=== PATIENT | female | born 1955 | race Hispanic/Latino ===

== ENCOUNTER 2017-10-04 18:58 | Emergency (ER) | payer MEDICARE ==
[2017-10-04 20:10] VITALS: BP 121/70
[2017-10-04] MEDS ORDERED: THERAGRAN Tab PO ONE (20:20)
[2017-10-04] MEDS ORDERED: VITAMIN B-1 PO ONE (20:20)
--- NOTE | 2017-10-04 20:23 | Emergency Department Report ---
ED General Adult HPI - General Chief complaint: Alcohol Stated complaint: ETOH Time Seen by Provider: 10/04/17 19:53 Source: EMS Mode of arrival: Stretcher Limitations: No Limitations - History of Present Illness Initial comments: Patient presents to the emergency department for evaluation. Patient states that she has been drinking and comes to the ED for further evaluation. Patient has no other complaints. Patient denies chest pain, shortness of breath, abdominal pain, headache Radiation: non-radiation Severity scale (0 -10): 0 Improves with: none Worsens with: none Associated Symptoms: denies other symptoms Treatments Prior to Arrival: none ED Review of Systems ROS: Stated complaint: ETOH Other details as noted in HPI Comment: All other systems reviewed and negative Constitutional: denies: chills, fever Eyes: denies: eye pain, eye discharge, vision change ENT: denies: ear pain, throat pain Respiratory: denies: cough, shortness of breath, wheezing Cardiovascular: denies: chest pain, palpitations Endocrine: no symptoms reported Gastrointestinal: denies: abdominal pain, nausea, diarrhea Genitourinary: denies: urgency, dysuria, discharge Musculoskeletal: denies: back pain, joint swelling, arthralgia Skin: denies: rash, lesions Neurological: denies: headache, weakness, paresthesias Psychiatric: denies: anxiety, depression Hematological/Lymphatic: denies: easy bleeding, easy bruising ED Past Medical Hx - Social History Smoking Status: Current Every Day Smoker Substance Use Type: Alcohol ED Physical Exam - General Limitations: No Limitations, Other (patient appears inebriated with an odor of EtOH) General appearance: alert, in no apparent distress - Head Head exam: Present: atraumatic, normocephalic - Eye Eye exam: Present: normal appearance - ENT ENT exam: Present: mucous membranes moist - Neck Neck exam: Present: normal inspection - Respiratory Respiratory exam: Present: normal lung sounds bilaterally. Absent: respiratory distress - Cardiovascular Cardiovascular Exam: Present: regular rate, normal rhythm. Absent: systolic murmur, diastolic murmur, rubs, gallop - GI/Abdominal GI/Abdominal exam: Present: soft, normal bowel sounds. Absent: distended, tenderness - Extremities Exam Extremities exam: Present: normal inspection - Back Exam Back exam: Present: normal inspection - Neurological Exam Neurological exam: Present: alert, oriented X3, CN II-XII intact. Absent: motor sensory deficit - Psychiatric Psychiatric exam: Present: normal affect, normal mood - Skin Skin exam: Present: warm, dry, intact, normal color. Absent: rash ED Course Vital Signs 10/04/17 10/04/17 19:50 20:00 Pulse Rate 79 Respiratory 19 20 Rate Blood Pressure 121/70 O2 Sat by Pulse 88 92 Oximetry ED Medical Decision Making - Lab Data Result diagrams: 10/04/17 20:23 10/04/17 20:23 - Medical Decision Making Discussed results with the patient Critical care attestation.: If time is entered above; I have spent that time in minutes in the direct care of this critically ill patient, excluding procedure time. ED Disposition Clinical Impression: Alcohol abuse Disposition: DC-01 TO HOME OR SELFCARE Is pt being admited?: No Does the pt Need Aspirin: No Condition: Stable Instructions: Alcohol Intoxication (ED), Abuse of Alcohol (ED) Additional Instructions: Return if worse Time of Disposition: 02:15
[2017-10-04 20:51] LABS: Basophils # (Auto) 0.1 K/mm3 (0.0-0.1); Basophils % (Auto) 1.8 % (0.0-1.8); Eosinophils # (Auto) 0.5 K/mm3 (0.0-0.4); Eosinophils % (Auto) 7.2 % (0.0-4.3); Hematocrit 28.4 % (30.3-42.9); Hemoglobin 9.3 gm/dl (10.1-14.3); Lymphocytes # (Auto) 2.8 K/mm3 (1.2-5.4); Lymphocytes % (Auto) 41.8 % (13.4-35.0); Mean Corpuscular HGB Conc 33 % (30-34); Mean Corpuscular Hemoglobin 33 pg (28-32); Mean Corpuscular Volume 101 fl (79-97); Monocytes # (Auto) 0.8 K/mm3 (0.0-0.8); Monocytes % (Auto) 11.6 % (0.0-7.3); Platelet Count 239 K/mm3 (140-440); Red Cell Distribution Width 18.4 % (13.2-15.2)
[2017-10-04 21:19] LABS: Alanine Aminotransferase 65 units/L (7-56); Albumin 3.5 g/dL (3.9-5); BUN/Creatinine Ratio 17; Blood Urea Nitrogen 10 mg/dL (7-17); Calcium 8.2 mg/dL (8.4-10.2); Hemolysis Index 4
[2017-10-05] MEDS ORDERED: FOLVITE PO SCH (10:00)
== END 2017-10-05 04:15 | disposition home or self-care (01) ==
LOC: ED 18:58
DX: F10.129 Alcohol abuse with intoxication, unspecified (principal)
CPT/HCPCS: 36415; 80053; 82693; 85025; 99283; G0480; 80320

== ENCOUNTER 2017-10-09 17:00 | Inpatient (IN) | payer MEDICARE ==
--- NOTE | 2017-10-09 17:31 | Emergency Department Report ---
ED Shortness of Breath HPI - General Chief Complaint: Dyspnea/Respdistress Stated Complaint: DIFFICULTY BREATHING Time Seen by Provider: 10/09/17 17:30 Source: EMS Mode of arrival: Stretcher Limitations: No Limitations - History of Present Illness Initial Comments: Patient states she is homeless and she's been smoking and drinking alcohol all day. She came to the emergency room complaining of shortness of breath after drinking alcohol and smoking cigarettes today. Patient looks unkempt. MD Complaint: shortness of breath -: Gradual Severity: mild Pain Scale: 3 Improves With: nothing Worsens With: nothing Treatments Prior to Arrival: none - Related Data Home Medications Medication Instructions Recorded Confirmed Last Taken Unobtainable 10/09/17 10/09/17 Unknown Allergies Allergy/AdvReac Type Severity Reaction Status Date / Time Penicillins Allergy Unknown Unknown Verified 10/09/17 17:21 ED Review of Systems ROS: Stated complaint: DIFFICULTY BREATHING Other details as noted in HPI Comment: All other systems reviewed and negative Constitutional: denies: chills, fever Eyes: denies: eye pain ENT: denies: ear pain Respiratory: shortness of breath Cardiovascular: denies: chest pain, palpitations, dyspnea on exertion Endocrine: no symptoms reported Gastrointestinal: denies: abdominal pain, nausea, vomiting, diarrhea Genitourinary: denies: urgency, dysuria, frequency Musculoskeletal: denies: back pain, joint swelling Skin: denies: rash, change in color Neurological: denies: headache, weakness Psychiatric: denies: anxiety, depression Hematological/Lymphatic: denies: easy bleeding, easy bruising ED Past Medical Hx - Past Medical History Previous Medical History?: Yes Hx Hypertension: Yes Hx Seizures: Yes Hx COPD: Yes - Surgical History Past Surgical History?: Yes Additional Surgical History: Partial Hysterectomy - Social History Smoking Status: Current Every Day Smoker Substance Use Type: Alcohol - Medications Home Medications: Home Medications Medication Instructions Recorded Confirmed Last Taken Type Unobtainable 10/09/17 10/09/17 Unknown History ED Physical Exam - General Limitations: No Limitations General appearance: alert, in no apparent distress, other (Unkempt) - Head Head exam: Present: atraumatic, normocephalic, normal inspection - Eye Eye exam: Present: normal appearance, PERRL, EOMI Pupils: Present: normal accommodation - ENT ENT exam: Present: normal exam, normal orophraynx, mucous membranes moist - Neck Neck exam: Present: normal inspection, full ROM. Absent: tenderness - Respiratory Respiratory exam: Present: normal lung sounds bilaterally. Absent: respiratory distress, wheezes, rales, rhonchi - Cardiovascular Cardiovascular Exam: Present: regular rate, normal rhythm, normal heart sounds - GI/Abdominal GI/Abdominal exam: Present: soft, normal bowel sounds. Absent: distended, tenderness, guarding, rebound - Extremities Exam Extremities exam: Present: normal inspection, full ROM, normal capillary refill - Back Exam Back exam: Present: normal inspection, full ROM - Neurological Exam Neurological exam: Present: alert, oriented X3, CN II-XII intact - Psychiatric Psychiatric exam: Present: normal affect, normal mood - Skin Skin exam: Present: warm, dry, intact, normal color ED Course Vital Signs 10/09/17 10/09/17 10/10/17 17:13 19:28 10:41 Temperature 97.5 F L 97.8 F Pulse Rate 112 H 92 H Pulse Rate [ 92 H Anterior Bilateral Throughout] Respiratory 18 18 Rate Respiratory 18 Rate [Anterior Bilateral Throughout] Blood Pressure 140/80 178/90 [Left] O2 Sat by Pulse 100 95 Oximetry - Reevaluation(s) Reevaluation #1: 10/09/17 20:02 Patient care was transferred to Dr Christine at shift change pending alcohol level, CTA of the chest with IV contrast to evaluate for pulmonary embolism. Dr. Christine to re-evaluate and disposition patient after her Lab and CT scan has resulted. ED Medical Decision Making - Lab Data Result diagrams: 10/09/17 18:54 10/09/17 18:54 - EKG Data -: EKG Interpreted by Me EKG shows normal: sinus rhythm Rate: normal (99) - EKG Data When compared to previous EKG there are: previous EKG unavailable Interpretation: no acute changes - Radiology Data Radiology results: report reviewed, image reviewed - Medical Decision Making Shortness of breath. COPD. Critical care attestation.: If time is entered above; I have spent that time in minutes in the direct care of this critically ill patient, excluding procedure time. ED Disposition Clinical Impression: Alcohol abuse, Elevated d-dimer Dyspnea Qualifiers: Dyspnea type: unspecified Qualified Code(s): R06.00 - Dyspnea, unspecified Disposition: OP ADMIT IP TO THIS HOSP Is pt being admited?: Yes Does the pt Need Aspirin: No Condition: Stable Referrals: PRIMARY CARE,MD [Primary Care Provider] - 3-5 Days
[2017-10-09] MEDS ORDERED: PROVENTIL IH ONE (17:40)
[2017-10-09] MEDS ORDERED: NACL 0.9% 1000 ML 1,000 ML IV ONE (17:42)
[2017-10-09 18:57] LABS: Bacteria,Urine 1+ /HPF (Negative); Bilirubin,Urine NEG (Negative); Blood,Urine NEG (Negative); Color,Urine Yellow (Yellow); Hyaline Casts,Urine 1 /LPF; Mucus,Urine FEW /HPF; Protein,Urine <15 mg/dL mg/dL (Negative)
[2017-10-09 19:04] LABS: Basophils # (Auto) 0.1 K/mm3 (0.0-0.1); Basophils % (Auto) 1.3 % (0.0-1.8); Eosinophils # (Auto) 0.5 K/mm3 (0.0-0.4); Eosinophils % (Auto) 7.6 % (0.0-4.3); Hematocrit 31.3 % (30.3-42.9); Hemoglobin 10.4 gm/dl (10.1-14.3); Lymphocytes # (Auto) 2.3 K/mm3 (1.2-5.4); Lymphocytes % (Auto) 33.4 % (13.4-35.0); Mean Corpuscular HGB Conc 33 % (30-34); Mean Corpuscular Hemoglobin 33 pg (28-32); Mean Corpuscular Volume 99 fl (79-97); Monocytes # (Auto) 0.6 K/mm3 (0.0-0.8); Monocytes % (Auto) 8.3 % (0.0-7.3); Platelet Count 256 K/mm3 (140-440); Red Blood Count 3.16 M/mm3 (3.65-5.03); Red Cell Distribution Width 18.4 % (13.2-15.2)
[2017-10-09 19:06] LABS: Amphetamine Screen,Urine PRESUMPTIVE NEGATIVE; Cannabinoid Screen,Urine PRESUMPTIVE NEGATIVE; Cocaine Screen,Urine PRESUMPTIVE NEGATIVE; Methadone Screen,Urine PRESUMPTIVE NEGATIVE; Opiate Screen,Urine PRESUMPTIVE NEGATIVE
[2017-10-09 19:31] LABS: Benzodiazepines Screen,Urine PRESUMPTIVE POSITIVE
[2017-10-09 19:48] LABS: Alanine Aminotransferase 70 units/L (7-56)
[2017-10-09 19:55] LABS: Bilirubin,Direct < 0.2 mg/dL (0-0.2)
[2017-10-09 20:10] LABS: BUN/Creatinine Ratio 10; Blood Urea Nitrogen 6 mg/dL (7-17); Calcium 8.9 mg/dL (8.4-10.2); Hemolysis Index 13
--- NOTE | 2017-10-09 20:43 | XRay Report ---
FINAL REPORT EXAM: XR CHEST 1V AP HISTORY: Shortness of breath TECHNIQUE: AP portable view of the chest PRIORS: None. FINDINGS: Lines, tubes, and devices: N/A Lungs and pleura: Trachea is normal in position. Lungs are clear of infiltrate, pleural effusion, vascular congestion, or pneumothorax. Cardiomediastinal silhouette: Cardiac and mediastinal silhouettes are unremarkable. Calcification of the aortic arch is noted. Other: Bony structures are intact. IMPRESSION: No acute cardiopulmonary process seen.
--- NOTE | 2017-10-09 23:00 | Cat Scan Report ---
FINAL REPORT PROCEDURE: CT ANGIO CHEST TECHNIQUE: Computerized tomographic angiography of the chest was performed after the IV injection of iodinated nonionic contrast including image processing. The image data was postprocessed using 2-dimensional multiplanar reformatted (MPR) and 3-dimensional (MIP and/or volume rendered) techniques. HISTORY: Elevated D-Dimer COMPARISON: No prior studies are available for comparison. FINDINGS: Bilateral pulmonary arteries and their branches demonstrate normal opacification without filling defects. Aorta is of normal caliber without evidence of dissection or aneurysm formation. Cardiac size is within normal limits. There is mild degree sub-carinal lymphadenopathy. Nonenlarged right hilar lymph nodes are identified. Thyroid demonstrates normal size and density. Visualized upper abdominal structures are within normal limits. There is diffuse thickening of interstitial septa. There are no confluent infiltrates or mass lesions. IMPRESSION: No evidence of pulmonary embolism No acute pulmonary process Diffuse interstitial septal thickening most likely represents interstitial fibrosis. Mild degree sub-carinal lymphadenopathy.
[2017-10-10] MEDS ORDERED: ATIVAN IV PRN ×2 (02:16)
--- NOTE | 2017-10-10 02:19 | Emergency Department Report ---
Blank Doc - Documentation Documentation: I was asked by Dr Zayas to follow the CT angiography results for this patient and assist with disposition. CT angiography does not show any signs of any pulmonary embolism or any other acute process. The patient's blood alcohol level was 0.22 but upon recheck it is now down to 0.03. The patient is awake and alert but does appear tremulous and is starting to have some withdrawal signs. She has been placed on the CIWA protocol. The patient will remain down here in the emergency department and will be seen by the [facility] spa therapist for possible detox referral.
[2017-10-10] MEDS: ATIVAN IV PRN ×3 (07:55→18:43)
--- NOTE | 2017-10-10 10:01 | History and Physical Report ---
History of Present Illness Date of examination: 10/10/17 Date of admission: 10/10/17 Chief complaint: Worsening shortness of breath/for alcohol detox History of present illness: 61-year-old female patient with significant past medical history of COPD and chronic alcohol use presented to the emergency room with worsening shortness of breath and patient also requests to be admitted for detox program for alcohol. Patient reports that she is homeless, and depressed and has been drinking excessively. The [facility] team has evaluated the patient, and patient agreed to undergo treatment. Patient denies chest pain or palpitations Complains of mild shortness of breath Past History Past Medical History: other (depression) Past Surgical History: No surgical history Social history: smoking, alcohol abuse (on his alcohol use) Family history: hypertension Medications and Allergies Allergies Allergy/AdvReac Type Severity Reaction Status Date / Time Penicillins Allergy Unknown Unknown Verified 10/09/17 17:21 Home Medications Medication Instructions Recorded Confirmed Last Taken Type Unobtainable 10/09/17 10/09/17 Unknown History Active Meds: Active Medications Lorazepam (Ativan) 2 mg IV Q1HR PRN PRN Reason: CIWA-Ar 8-15 Last Admin: 10/10/17 07:55 Dose: 2 mg Lorazepam (Ativan) 4 mg IV Q1HR PRN PRN Reason: CIWA-Ar 16-25 Lorazepam (Ativan) 4 mg IV Q15MIN PRN PRN Reason: CIWA-Ar >25 Review of Systems Constitutional: no weight loss, no weight gain, no fever, no chills Ears, nose, mouth and throat: no nasal congestion, no nasal discharge Cardiovascular: shortness of breath, no chest pain, no orthopnea, no palpitations Respiratory: no cough with sputum, no hemoptysis Gastrointestinal: no abdominal pain, no nausea, no vomiting Genitourinary Female: no flank pain, no dysuria Musculoskeletal: no myalgias, no arthritis Integumentary: no rash, no lesions Neurological: no seizures, no syncope, no vertigo Psychiatric: depression (no suicidal ideations or thoughts), no anxiety Endocrine: no cold intolerance, no heat intolerance, no polydipsia, no polyuria Hematologic/Lymphatic: no easy bruising, no easy bleeding Allergic/Immunologic: no urticaria, no allergic rhinitis Exam - Constitutional Vitals: Temp Pulse Resp BP Pulse Ox 97.5 F L 92 H 18 140/80 100 10/09/17 17:13 10/09/17 19:28 10/09/17 19:28 10/09/17 17:13 10/09/17 17:13 General appearance: Present: no acute distress, well-nourished - EENT Eyes: Present: PERRL, EOM intact - Neck Neck: Present: supple, normal ROM - Respiratory Respiratory effort: normal Respiratory: bilateral: diminished, wheezing, negative: rales, rhonchi - Cardiovascular Rhythm: regular Heart Sounds: Present: S1 & S2 - Extremities Extremities: no ischemia, No edema - Abdominal General gastrointestinal: Present: soft, non-tender, non-distended, normal bowel sounds - Integumentary Integumentary: Present: warm - Musculoskeletal Musculoskeletal: strength equal bilaterally, generalized weakness - Psychiatric Psychiatric: appropriate mood/affect, cooperative - Neurologic Neurologic: CNII-XII intact, moves all extremities Results - Labs CBC & Chem 7: 10/09/17 18:54 10/09/17 18:54 Labs: Abnormal lab results 10/09/17 10/09/17 10/09/17 Range/Units 18:54 18:54 18:54 RBC 3.16 L (3.65-5.03) M/mm3 MCV 99 H (79-97) fl MCH 33 H (28-32) pg RDW 18.4 H (13.2-15.2) % [place] % (Auto) 8.3 H (0.0-7.3) % Eos % (Auto) 7.6 H (0.0-4.3) % Eos # 0.5 H (0.0-0.4) K/mm3 D-Dimer (0-234) ng/mlDDU BUN 6 L (7-17) mg/dL Creatinine 0.6 L (0.7-1.2) mg/dL Glucose 113 H (65-100) mg/dL AST 101 H (5-40) units/L ALT 70 H (7-56) units/L Urine WBC (Auto) (0.0-6.0) /HPF Salicylates (2.8-20.0) mg/dL Acetaminophen (10.0-30.0) ug/mL Plasma/Serum Alcohol (0-0.07) % 10/09/17 10/09/1718 Range/Units 18:54 18:54 18:54 RBC (3.65-5.03) M/mm3 MCV (79-97) fl MCH (28-32) pg RDW (13.2-15.2) % [place] % (Auto) (0.0-7.3) % Eos % (Auto) (0.0-4.3) % Eos # (0.0-0.4) K/mm3 D-Dimer (0-234) ng/mlDDU BUN (7-17) mg/dL Creatinine (0.7-1.2) mg/dL Glucose (65-100) mg/dL AST (5-40) units/L ALT (7-56) units/L Urine WBC (Auto) (0.0-6.0) /HPF Salicylates < 0.3 L (2.8-20.0) mg/dL Acetaminophen < 5.0 L (10.0-30.0) ug/mL Plasma/Serum Alcohol 0.22 H (0-0.07) % 10/09/17 10/09/17 Range/Units 19:15 Unknown RBC (3.65-5.03) M/mm3 MCV (79-97) fl MCH (28-32) pg RDW (13.2-15.2) % [place] % (Auto) (0.0-7.3) % Eos % (Auto) (0.0-4.3) % Eos # (0.0-0.4) K/mm3 D-Dimer 1054.93 H (0-234) ng/mlDDU BUN (7-17) mg/dL Creatinine (0.7-1.2) mg/dL Glucose (65-100) mg/dL AST (5-40) units/L ALT (7-56) units/L Urine WBC (Auto) 9.0 H (0.0-6.0) /HPF Salicylates (2.8-20.0) mg/dL Acetaminophen (10.0-30.0) ug/mL Plasma/Serum Alcohol (0-0.07) % Assessment and Plan --Alcohol detox program; Continue current management per protocol IV fluids, CIWA protocol --Elevated D dimers; negative PE, negative DVT --History of COPD; oxygen titrated O2 sats more than 90% Nebulizers as needed, supportive care --Ongoing tobacco use; smoking cessation counseling done Advised nicotine patch --Chronic alcohol use; strongly advised to quit alcohol intake --Alcohol withdrawal symptoms; management per protocol CIWA protocol, and detox program. --DVT prophylaxis; Lovenox Closely monitor the patient and adjust the management as needed
[2017-10-10] MEDS ORDERED: HABITROL TD ONE (10:06)
[2017-10-10] MEDS: 1: FOLVITE 1 MG, INFUVITE 10 ML, VITAMIN B-1 100 MG in NACL 0.9% 1000 ML 988.8 ML 2: NA IV SCH ×2 (12:47→23:51)
--- NOTE | 2017-10-10 12:48 | Consultation ---
History of Present Illness - Reason for Consult Consult date: 10/10/17 Reason for consult: Mental Health Evaluation Requesting physician: KEI DALE - Chief Complaint Chief complaint: "I want detox" - History of Present Psychiatric Illness 61 y.o. white female presenting to the ER for shortness of breath and ETOH. Today the patient is calm and cooperative during the assessment. She stated drinking (etoh) more frequent since the of both of her parents in 2007. She stated that she has been to rehab in the past, but would always relapse. She stated having a hx of depression and take Celexa. She stated that her main focus is to stop drinking (etoh) and not being homeless. She denies SI/HI's and AVH's. She denies any manic episodes and erratic sleep. She denies recreational drug use (etoh). Medications and Allergies Allergies Allergy/AdvReac Type Severity Reaction Status Date / Time Penicillins Allergy Unknown Unknown Verified 10/09/17 17:21 Home Medications Medication Instructions Recorded Confirmed Last Taken Type Unobtainable 10/09/17 10/09/17 Unknown History Active Meds: Active Medications Enoxaparin Sodium (Lovenox) 40 mg SUB-Q QDAY TENA Famotidine (Pepcid) 20 mg PO BID TENA Folic Acid 1 mg/ Multivitamins /Minerals 10 ml/ Thiamine HCl 100 mg/ Sodium Chloride 1,000 mls @ 125 mls/hr IV .BY DURATION TENA Sodium Chloride (Nacl 0.9% 1000 Ml) 1,000 mls @ 125 mls/hr IV .BY DURATION TENA Lorazepam (Ativan) 2 mg IV Q1HR PRN PRN Reason: CIWA-Ar 8-15 Last Admin: 10/10/17 07:55 Dose: 2 mg Lorazepam (Ativan) 4 mg IV Q1HR PRN PRN Reason: CIWA-Ar 16-25 Lorazepam (Ativan) 4 mg IV Q15MIN PRN PRN Reason: CIWA-Ar >25 Past psychiatric history - Past Medical History Past Medical History: COPD, hypertension, seizures Past Surgical History: No surgical history - past Psychiatric treatment and history Psych: Depression psychiatric treatment history: Hx of depression. Denies a fam psy hx. - Social History Social history: other (Homeless) Mental Status Exam - Vital signs Last Vital Signs Temp 97.8 F 06/21/18 10:41 Pulse 92 H 10/10/17 10:41 Resp 18 10/10/17 11:53 BP 178/90 10/10/17 10:41 Pulse Ox 95 10/10/17 10:41 - Exam Narrative exam: MSE: Appearance: calm, cooperative Behavior: regular eye contact Speech: regular rate and tone Mood: withdrawn, sad Affect: congruent to mood Thought Process: circumstantial Thought Content: denies SI/HI's and AVH's Motor Activity: lying in bed Cognition: A/O x 3 Insight: appropriate Judgment: appropriate Results Result Diagrams: 10/09/17 18:54 10/09/17 18:54 Abnormal lab results 10/09/17 10/09/17 10/09/17 Range/Units 18:54 18:54 18:54 RBC 3.16 L (3.65-5.03) M/mm3 MCV 99 H (79-97) fl MCH 33 H (28-32) pg RDW 18.4 H (13.2-15.2) % [place] % (Auto) 8.3 H (0.0-7.3) % Eos % (Auto) 7.6 H (0.0-4.3) % Eos # 0.5 H (0.0-0.4) K/mm3 D-Dimer (0-234) ng/mlDDU BUN 6 L (7-17) mg/dL Creatinine 0.6 L (0.7-1.2) mg/dL Glucose 113 H (65-100) mg/dL AST 101 H (5-40) units/L ALT 70 H (7-56) units/L Urine WBC (Auto) (0.0-6.0) /HPF Salicylates (2.8-20.0) mg/dL Acetaminophen (10.0-30.0) ug/mL Plasma/Serum Alcohol (0-0.07) % 10/09/17 10/09/17 10/09/17 Range/Units 18:54 18:54 18:54 RBC (3.65-5.03) M/mm3 MCV (79-97) fl MCH (28-32) pg RDW (13.2-15.2) % [place] % (Auto) (0.0-7.3) % Eos % (Auto) (0.0-4.3) % Eos # (0.0-0.4) K/mm3 D-Dimer (0-234) ng/mlDDU BUN (7-17) mg/dL Creatinine (0.7-1.2) mg/dL Glucose (65-100) mg/dL AST (5-40) units/L ALT (7-56) units/L Urine WBC (Auto) (0.0-6.0) /HPF Salicylates < 0.3 L (2.8-20.0) mg/dL Acetaminophen < 5.0 L (10.0-30.0) ug/mL Plasma/Serum Alcohol 0.22 H (0-0.07) % 10/09/17 10/09/17 Range/Units 19:15 Unknown RBC (3.65-5.03) M/mm3 MCV (79-97) fl MCH (28-32) pg RDW (13.2-15.2) % [place] % (Auto) (0.0-7.3) % Eos % (Auto) (0.0-4.3) % Eos # (0.0-0.4) K/mm3 D-Dimer 1054.93 H (0-234) ng/mlDDU BUN (7-17) mg/dL Creatinine (0.7-1.2) mg/dL Glucose (65-100) mg/dL AST (5-40) units/L ALT (7-56) units/L Urine WBC (Auto) 9.0 H (0.0-6.0) /HPF Salicylates (2.8-20.0) mg/dL Acetaminophen (10.0-30.0) ug/mL Plasma/Serum Alcohol (0-0.07) % All other labs normal. Assessment and Plan Assessment and plan: Impression: Hx of Depression. Alcohol Use DO. Alcohol Intoxication 0.22 on admission. Today the patient is calm and cooperative during the assessment. Recommendation/Plan: The patient was referred to [facility]. Discussed the importance to abstain from alcohol consumption (etoh) with patient. Discussed generalized coping skills with patient. Case Mgmt involvement, the patient is homeless.
[2017-10-10] MEDS ORDERED: NORCO 7.5/325 ONE (14:49)
[2017-10-10] MEDS ORDERED: NORCO 7.5/325 PO ONE (14:57)
[2017-10-10] MEDS ORDERED: BENTYL PO PRN (16:19)
[2017-10-10] MEDS ORDERED: PROAIR IH PRN (16:41)
[2017-10-10] MEDS ORDERED: PROVENTIL IH PRN (20:39)
[2017-10-10] MEDS: PEPCID PO SCH (23:20)
[2017-10-11] MEDS: ATIVAN IV PRN ×4 (06:14→21:18)
[2017-10-11 06:30] LABS: Basophils # (Auto) 0.1 K/mm3 (0.0-0.1); Basophils % (Auto) 1.5 % (0.0-1.8); Eosinophils # (Auto) 0.1 K/mm3 (0.0-0.4); Eosinophils % (Auto) 2.9 % (0.0-4.3); Hematocrit 31.9 % (30.3-42.9); Hemoglobin 10.6 gm/dl (10.1-14.3); Lymphocytes # (Auto) 1.4 K/mm3 (1.2-5.4); Lymphocytes % (Auto) 31.8 % (13.4-35.0); Mean Corpuscular HGB Conc 33 % (30-34); Mean Corpuscular Hemoglobin 33 pg (28-32); Mean Corpuscular Volume 99 fl (79-97); Monocytes # (Auto) 0.3 K/mm3 (0.0-0.8); Monocytes % (Auto) 6.2 % (0.0-7.3); Platelet Count 219 K/mm3 (140-440); Red Blood Count 3.21 M/mm3 (3.65-5.03); Red Cell Distribution Width 18.5 % (13.2-15.2)
[2017-10-11 07:16] LABS: Alanine Aminotransferase 43 units/L (7-56); Albumin 3.4 g/dL (3.9-5); BUN/Creatinine Ratio 18; Blood Urea Nitrogen 9 mg/dL (7-17); Calcium 8.9 mg/dL (8.4-10.2); Hemolysis Index 6
[2017-10-11] MEDS: ROBAXIN PO PRN (08:44)
[2017-10-11] MEDS: NORCO 7.5/325 PO PRN ×2 (10:49→16:59)
[2017-10-11] MEDS: LOVENOX SUB-Q SCH (10:49)
[2017-10-11] MEDS: PEPCID PO SCH ×2 (10:50→21:17)
[2017-10-11] MEDS: celeXA PO SCH (13:58)
--- NOTE | 2017-10-11 14:29 | Progress Note ---
Assessment and Plan Assessment and plan: --Alcohol detox program; Continue current management per protocol IV fluids, CIWA protocol --Elevated D dimers; negative PE, negative DVT --History of COPD; oxygen titrated O2 sats more than 90% Nebulizers as needed, supportive care --Ongoing tobacco use; smoking cessation counseling done Advised nicotine patch --Chronic alcohol use; strongly advised to quit alcohol intake --Alcohol withdrawal symptoms; management per protocol CIWA protocol, and detox program. --DVT prophylaxis; Lovenox Closely monitor the patient and adjust the management as needed Plan of care reviewed with the patient and the nurse History Interval history: Patient Seen and examined medical records reviewed Complains of generalized body pains and it was for pain medications Mild tremulousness no agitation Alert awake oriented 3 not in acute distress Hospitalist Physical - Constitutional Vitals: Temp Pulse Resp BP Pulse Ox 97.4 F L 80 18 178/86 97 10/11/17 08:39 10/11/17 10:00 10/11/17 08:39 10/11/17 08:39 10/11/17 10:00 General appearance: Present: no acute distress, well-nourished - EENT Eyes: Present: PERRL, EOM intact - Neck Neck: Present: supple, normal ROM - Respiratory Respiratory effort: normal Respiratory: bilateral: diminished, negative: rales, rhonchi, wheezing - Cardiovascular Rhythm: regular Heart Sounds: Present: S1 & S2 - Extremities Extremities: no ischemia, No edema - Abdominal General gastrointestinal: soft, non-tender, non-distended, normal bowel sounds - Integumentary Integumentary: Present: clear, warm - Psychiatric Psychiatric: appropriate mood/affect, cooperative - Neurologic Neurologic: CNII-XII intact, moves all extremities Results - Labs CBC & Chem 7: 10/11/17 06:07 10/11/17 06:07 Labs: Laboratory Last Values WBC 4.5 K/mm3 (4.5-11.0) 10/11/17 06:07 RBC 3.21 M/mm3 (3.65-5.03) L 10/11/17 06:07 Hgb 10.6 gm/dl (10.1-14.3) 10/11/17 06:07 Hct 31.9 % (30.3-42.9) 10/11/17 06:07 MCV 99 fl (79-97) H 10/11/17 06:07 MCH 33 pg (28-32) H 10/11/17 06:07 MCHC 33 % (30-34) 10/11/17 06:07 RDW 18.5 % (13.2-15.2) H 10/11/17 06:07 Plt Count 219 K/mm3 (140-440) 10/11/17 06:07 Lymph % (Auto) 31.8 % (13.4-35.0) 10/11/17 06:07 [place] % (Auto) 6.2 % (0.0-7.3) 10/11/17 06:07 Eos % (Auto) 2.9 % (0.0-4.3) 10/11/17 06:07 Baso % (Auto) 1.5 % (0.0-1.8) 10/11/17 06:07 Lymph # 1.4 K/mm3 (1.2-5.4) 10/11/17 06:07 [place] # 0.3 K/mm3 (0.0-0.8) 10/11/17 06:07 Eos # 0.1 K/mm3 (0.0-0.4) 10/11/17 06:07 Baso # 0.1 K/mm3 (0.0-0.1) 10/11/17 06:07 Seg Neutrophils % 57.6 % (40.0-70.0) 10/11/17 06:07 Seg Neutrophils # 2.6 K/mm3 (1.8-7.7) 10/11/17 06:07 D-Dimer 1054.93 ng/mlDDU (0-234) H 10/09/17 19:15 Sodium 142 mmol/L (137-145) 10/11/17 06:07 Potassium 4.1 mmol/L (3.6-5.0) 10/11/17 06:07 Chloride 102.2 mmol/L (98-107) 10/11/17 06:07 Carbon Dioxide 26 mmol/L (22-30) 10/11/17 06:07 Anion Gap 18 mmol/L 10/11/17 06:07 BUN 9 mg/dL (7-17) 10/11/17 06:07 Creatinine 0.5 mg/dL (0.7-1.2) L 10/11/17 06:07 Estimated GFR > 60 ml/min 10/11/17 06:07 BUN/Creatinine Ratio 18 % 10/11/17 06:07 Glucose 92 mg/dL (65-100) 10/11/17 06:07 Calcium 8.9 mg/dL (8.4-10.2) 10/11/17 06:07 Phosphorus 3.70 mg/dL (2.5-4.5) 10/11/17 06:07 Magnesium 2.00 mg/dL (1.7-2.3) 10/11/17 06:07 Total Bilirubin 0.50 mg/dL (0.1-1.2) 10/11/17 06:07 Direct Bilirubin < 0.2 mg/dL (0-0.2) 10/09/17 18:54 Indirect Bilirubin 0.1 mg/dL 10/09/17 18:54 AST 48 units/L (5-40) H 10/11/17 06:07 ALT 43 units/L (7-56) 10/11/17 06:07 Alkaline Phosphatase 85 units/L (35-129) 10/11/17 06:07 NT-Pro-B Natriuret Pep 183.5 pg/mL (0-900) 10/09/17 18:54 Total Protein 6.6 g/dL (6.3-8.2) 10/11/17 06:07 Albumin 3.4 g/dL (3.9-5) L 10/11/17 06:07 Albumin/Globulin Ratio 1.1 % 10/11/17 06:07 TSH 3.730 mlU/mL (0.270-4.200) 10/09/17 18:54 Urine Color Yellow (Yellow) 10/09/17 Unknown Urine Turbidity Clear (Clear) 10/09/17 Unknown Urine pH 5.0 (5.0-7.0) 10/09/17 Unknown Ur Specific [place] 1.016 (1.003-1.030) 10/09/17 Unknown Urine Protein <15 mg/dl mg/dL (Negative) 10/09/17 Unknown Urine Glucose (UA) Neg mg/dL (Negative) 10/09/17 Unknown Urine Ketones Neg mg/dL (Negative) 10/09/17 Unknown Urine Blood Neg (Negative) 10/09/17 Unknown Urine Nitrite Neg (Negative) 10/09/17 Unknown Urine Bilirubin Neg (Negative) 10/09/17 Unknown Urine Urobilinogen 2.0 mg/dL (<2.0) 10/09/17 Unknown Ur Leukocyte Esterase Sm (Negative) 10/09/17 Unknown Urine WBC (Auto) 9.0 /HPF (0.0-6.0) H 10/09/17 Unknown Urine RBC (Auto) 7.0 /HPF (0.0-6.0) 10/09/17 Unknown U Epithel Cells (Auto) 3.0 /HPF (0-13.0) 10/09/17 Unknown Urine Bacteria (Auto) 1+ /HPF (Negative) 10/09/17 Unknown Ur Transition Epith Cell 1 /HPF 10/09/17 Unknown Hyaline Casts 1 /LPF 10/09/17 Unknown Urine Mucus Few /HPF 10/09/17 Unknown Salicylates < 0.3 mg/dL (2.8-20.0) L 10/09/17 18:54 Urine Opiates Screen Presumptive negative 10/09/17 Unknown Urine Methadone Screen Presumptive negative 10/09/17 Unknown Acetaminophen < 5.0 ug/mL (10.0-30.0) L 10/09/17 18:54 Ur Barbiturates Screen Presumptive negative 10/09/17 Unknown Ur Phencyclidine Scrn Presumptive negative 10/09/17 Unknown Ur Amphetamines Screen Presumptive negative 10/09/17 Unknown U Benzodiazepines Scrn Presumptive positive 10/09/17 Unknown Urine Cocaine Screen Presumptive negative 10/09/17 Unknown U Marijuana (THC) Screen Presumptive negative 10/09/17 Unknown Drugs of Abuse Note Disclamer 10/09/17 Unknown Plasma/Serum Alcohol 0.03 % (0-0.07) 10/10/17 00:48
[2017-10-11] MEDS: 1: FOLVITE 1 MG, INFUVITE 10 ML, VITAMIN B-1 100 MG in NACL 0.9% 1000 ML 988.8 ML 2: NA IV SCH ×2 (15:02→19:00)
[2017-10-11] MEDS: KEPPRA PO SCH (21:17)
[2017-10-12] MEDS: 1: FOLVITE 1 MG, INFUVITE 10 ML, VITAMIN B-1 100 MG in NACL 0.9% 1000 ML 988.8 ML 2: NA IV SCH ×2 (02:30→07:54)
[2017-10-12] MEDS: ATIVAN IV PRN ×2 (06:58→14:00)
[2017-10-12] MEDS: NORCO 7.5/325 PO PRN ×3 (06:58→23:52)
--- NOTE | 2017-10-12 08:17 | Progress Note ---
Assessment and Plan Assessment and plan: --Alcohol detox program; symptoms significantly improved Continue current management per protocol, IV fluids, CIWA protocol --Elevated D dimers; negative PE, negative DVT --History of COPD; oxygen titrated O2 sats more than 90% Nebulizers as needed, supportive care --Ongoing tobacco use; smoking cessation counseling done Advised nicotine patch --Chronic alcohol use; strongly advised to quit alcohol intake --Alcohol withdrawal symptoms; management per protocol CIWA protocol, and detox program. --DVT prophylaxis; Lovenox Closely monitor the patient and adjust the management as needed Plan of care reviewed with the patient and the nurse History Interval history: Patient seen and examined medical records reviewed No new events reported by the nursing staff Patient is sleeping easily awakens No new complaints Vital signs noted Hospitalist Physical - Constitutional Vitals: Temp Pulse Resp BP Pulse Ox 97.9 F 67 18 168/94 99 10/12/17 04:19 10/12/17 04:19 10/12/17 04:19 10/12/17 04:19 10/12/17 04:19 General appearance: Present: no acute distress, well-nourished - EENT Eyes: Present: PERRL, EOM intact - Neck Neck: Present: supple, normal ROM - Respiratory Respiratory effort: normal Respiratory: bilateral: diminished, negative: rales, rhonchi, wheezing - Cardiovascular Rhythm: regular Heart Sounds: Present: S1 & S2 - Extremities Extremities: no ischemia, No edema - Abdominal General gastrointestinal: soft, non-tender, non-distended, normal bowel sounds - Integumentary Integumentary: Present: clear, warm - Psychiatric Psychiatric: appropriate mood/affect, cooperative - Neurologic Neurologic: CNII-XII intact, moves all extremities Results - Labs CBC & Chem 7: 10/11/17 06:07 10/11/17 06:07 Labs: Laboratory Last Values WBC 4.5 K/mm3 (4.5-11.0) 10/11/17 06:07 RBC 3.21 M/mm3 (3.65-5.03) L 10/11/17 06:07 Hgb 10.6 gm/dl (10.1-14.3) 10/11/17 06:07 Hct 31.9 % (30.3-42.9) 10/11/17 06:07 MCV 99 fl (79-97) H 10/11/17 06:07 MCH 33 pg (28-32) H 10/11/17 06:07 MCHC 33 % (30-34) 10/11/17 06:07 RDW 18.5 % (13.2-15.2) H 10/11/17 06:07 Plt Count 219 K/mm3 (140-440) 10/11/17 06:07 Lymph % (Auto) 31.8 % (13.4-35.0) 10/11/17 06:07 [place] % (Auto) 6.2 % (0.0-7.3) 10/11/17 06:07 Eos % (Auto) 2.9 % (0.0-4.3) 10/11/17 06:07 Baso % (Auto) 1.5 % (0.0-1.8) 10/11/17 06:07 Lymph # 1.4 K/mm3 (1.2-5.4) 10/11/17 06:07 [place] # 0.3 K/mm3 (0.0-0.8) 10/11/17 06:07 Eos # 0.1 K/mm3 (0.0-0.4) 10/11/17 06:07 Baso # 0.1 K/mm3 (0.0-0.1) 10/11/17 06:07 Seg Neutrophils % 57.6 % (40.0-70.0) 10/11/17 06:07 Seg Neutrophils # 2.6 K/mm3 (1.8-7.7) 10/11/17 06:07 D-Dimer 1054.93 ng/mlDDU (0-234) H 10/09/17 19:15 Sodium 142 mmol/L (137-145) 10/11/17 06:07 Potassium 4.1 mmol/L (3.6-5.0) 10/11/17 06:07 Chloride 102.2 mmol/L (98-107) 10/11/17 06:07 Carbon Dioxide 26 mmol/L (22-30) 10/11/17 06:07 Anion Gap 18 mmol/L 10/11/17 06:07 BUN 9 mg/dL (7-17) 10/11/17 06:07 Creatinine 0.5 mg/dL (0.7-1.2) L 10/11/17 06:07 Estimated GFR > 60 ml/min 10/11/17 06:07 BUN/Creatinine Ratio 18 % 10/11/17 06:07 Glucose 92 mg/dL (65-100) 10/11/17 06:07 Calcium 8.9 mg/dL (8.4-10.2) 10/11/17 06:07 Phosphorus 3.70 mg/dL (2.5-4.5) 10/11/17 06:07 Magnesium 2.00 mg/dL (1.7-2.3) 10/11/17 06:07 Total Bilirubin 0.50 mg/dL (0.1-1.2) 10/11/17 06:07 Direct Bilirubin < 0.2 mg/dL (0-0.2) 10/09/17 18:54 Indirect Bilirubin 0.1 mg/dL 10/09/17 18:54 AST 48 units/L (5-40) H 10/11/17 06:07 ALT 43 units/L (7-56) 10/11/17 06:07 Alkaline Phosphatase 85 units/L (35-129) 10/11/17 06:07 NT-Pro-B Natriuret Pep 183.5 pg/mL (0-900) 10/09/17 18:54 Total Protein 6.6 g/dL (6.3-8.2) 10/11/17 06:07 Albumin 3.4 g/dL (3.9-5) L 10/11/17 06:07 Albumin/Globulin Ratio 1.1 % 10/11/17 06:07 TSH 3.730 mlU/mL (0.270-4.200) 10/09/17 18:54 Urine Color Yellow (Yellow) 10/09/17 Unknown Urine Turbidity Clear (Clear) 10/09/17 Unknown Urine pH 5.0 (5.0-7.0) 10/09/17 Unknown Ur Specific [place] 1.016 (1.003-1.030) 10/09/17 Unknown Urine Protein <15 mg/dl mg/dL (Negative) 10/09/17 Unknown Urine Glucose (UA) Neg mg/dL (Negative) 10/09/17 Unknown Urine Ketones Neg mg/dL (Negative) 10/09/17 Unknown Urine Blood Neg (Negative) 10/09/17 Unknown Urine Nitrite Neg (Negative) 10/09/17 Unknown Urine Bilirubin Neg (Negative) 10/09/17 Unknown Urine Urobilinogen 2.0 mg/dL (<2.0) 10/09/17 Unknown Ur Leukocyte Esterase Sm (Negative) 10/09/17 Unknown Urine WBC (Auto) 9.0 /HPF (0.0-6.0) H 10/09/17 Unknown Urine RBC (Auto) 7.0 /HPF (0.0-6.0) 10/09/17 Unknown U Epithel Cells (Auto) 3.0 /HPF (0-13.0) 10/09/17 Unknown Urine Bacteria (Auto) 1+ /HPF (Negative) 10/09/17 Unknown Ur Transition Epith Cell 1 /HPF 10/09/17 Unknown Hyaline Casts 1 /LPF 10/09/17 Unknown Urine Mucus Few /HPF 10/09/17 Unknown Salicylates < 0.3 mg/dL (2.8-20.0) L 10/09/17 18:54 Urine Opiates Screen Presumptive negative 10/09/17 Unknown Urine Methadone Screen Presumptive negative 10/09/17 Unknown Acetaminophen < 5.0 ug/mL (10.0-30.0) L 10/09/17 18:54 Ur Barbiturates Screen Presumptive negative 10/09/17 Unknown Ur Phencyclidine Scrn Presumptive negative 10/09/17 Unknown Ur Amphetamines Screen Presumptive negative 10/09/17 Unknown U Benzodiazepines Scrn Presumptive positive 10/09/17 Unknown Urine Cocaine Screen Presumptive negative 10/09/17 Unknown U Marijuana (THC) Screen Presumptive negative 10/09/17 Unknown Drugs of Abuse Note Disclamer 10/09/17 Unknown Plasma/Serum Alcohol 0.03 % (0-0.07) 10/10/17 00:48
[2017-10-12] MEDS: celeXA PO SCH (11:03)
[2017-10-12] MEDS: PEPCID PO SCH ×2 (11:03→22:50)
[2017-10-12] MEDS: LOVENOX SUB-Q SCH (11:04)
[2017-10-12] MEDS: KEPPRA PO SCH ×2 (11:04→22:49)
[2017-10-12] MEDS ORDERED: XOPENEX IH ONE (16:13)
[2017-10-12] MEDS ORDERED: XOPENEX IH PRN (16:25)
[2017-10-13] MEDS: VISTARIL PO PRN ×2 (00:13→21:31)
[2017-10-13] MEDS: 1: FOLVITE 1 MG, INFUVITE 10 ML, VITAMIN B-1 100 MG in NACL 0.9% 1000 ML 988.8 ML 2: NA IV SCH ×3 (01:45→19:50)
[2017-10-13] MEDS ORDERED: XOPENEX IH SCH (08:30)
[2017-10-13] MEDS: NORCO 7.5/325 PO PRN ×2 (10:18→21:31)
[2017-10-13] MEDS: HABITROL TD SCH (10:19)
[2017-10-13] MEDS: LOVENOX SUB-Q SCH (10:19)
[2017-10-13] MEDS: KEPPRA PO SCH ×2 (10:20→21:30)
[2017-10-13] MEDS: PEPCID PO SCH ×2 (10:20→21:30)
[2017-10-13] MEDS: celeXA PO SCH (10:20)
[2017-10-13] MEDS: ATROVENT IH SCH (11:03)
[2017-10-13] MEDS: XOPENEX IH SCH (11:03)
[2017-10-13] MEDS: ATIVAN IV PRN (14:40)
--- NOTE | 2017-10-13 16:43 | Progress Note ---
Assessment and Plan Assessment and plan: --Alcohol detox program; symptoms completely resolved No agitation or tremulousness , patient is calm and composed Ambulatory without problems , continue current management --Elevated D dimers; negative PE, negative DVT --History of COPD; oxygen titrated O2 sats more than 90% Nebulizers as needed, supportive care --Ongoing tobacco use; smoking cessation counseling done Advised nicotine patch --Chronic alcohol use; strongly advised to quit alcohol intake --Alcohol withdrawal symptoms; management per protocol CIWA protocol, and detox program. --DVT prophylaxis; Lovenox New vision team following, possible discharge in 1-2 days if stable Plan of care is reviewed with the patient and her nurse History Interval history: Patient seen and examined medical records reviewed Feels better, no new complaints No tremulousness or agitation Vital signs reviewed Hospitalist Physical - Constitutional Vitals: Temp Pulse Resp BP Pulse Ox 95.5 F L 76 16 163/81 98 10/13/17 12:53 10/13/17 12:53 10/13/17 12:53 10/13/17 12:53 10/13/17 12:53 General appearance: Present: no acute distress, well-nourished - EENT Eyes: Present: PERRL, EOM intact - Neck Neck: Present: supple, normal ROM - Respiratory Respiratory effort: normal Respiratory: bilateral: diminished, negative: rales, rhonchi, wheezing - Cardiovascular Rhythm: regular Heart Sounds: Present: S1 & S2 - Extremities Extremities: no ischemia, No edema - Abdominal General gastrointestinal: soft, non-tender, non-distended, normal bowel sounds - Integumentary Integumentary: Present: clear, warm - Psychiatric Psychiatric: appropriate mood/affect, cooperative - Neurologic Neurologic: CNII-XII intact, moves all extremities Results - Labs CBC & Chem 7: 10/11/17 06:07 10/11/17 06:07 Labs: Laboratory Last Values WBC 4.5 K/mm3 (4.5-11.0) 10/11/17 06:07 RBC 3.21 M/mm3 (3.65-5.03) L 10/11/17 06:07 Hgb 10.6 gm/dl (10.1-14.3) 10/11/17 06:07 Hct 31.9 % (30.3-42.9) 10/11/17 06:07 MCV 99 fl (79-97) H 10/11/17 06:07 MCH 33 pg (28-32) H 10/11/17 06:07 MCHC 33 % (30-34) 10/11/17 06:07 RDW 18.5 % (13.2-15.2) H 10/11/17 06:07 Plt Count 219 K/mm3 (140-440) 10/11/17 06:07 Lymph % (Auto) 31.8 % (13.4-35.0) 10/11/17 06:07 [place] % (Auto) 6.2 % (0.0-7.3) 10/11/17 06:07 Eos % (Auto) 2.9 % (0.0-4.3) 10/11/17 06:07 Baso % (Auto) 1.5 % (0.0-1.8) 10/11/17 06:07 Lymph # 1.4 K/mm3 (1.2-5.4) 10/11/17 06:07 [place] # 0.3 K/mm3 (0.0-0.8) 10/11/17 06:07 Eos # 0.1 K/mm3 (0.0-0.4) 10/11/17 06:07 Baso # 0.1 K/mm3 (0.0-0.1) 10/11/17 06:07 Seg Neutrophils % 57.6 % (40.0-70.0) 10/11/17 06:07 Seg Neutrophils # 2.6 K/mm3 (1.8-7.7) 10/11/17 06:07 D-Dimer 1054.93 ng/mlDDU (0-234) H 10/09/17 19:15 Sodium 142 mmol/L (137-145) 10/11/17 06:07 Potassium 4.1 mmol/L (3.6-5.0) 10/11/17 06:07 Chloride 102.2 mmol/L (98-107) 10/11/17 06:07 Carbon Dioxide 26 mmol/L (22-30) 10/11/17 06:07 Anion Gap 18 mmol/L 10/11/17 06:07 BUN 9 mg/dL (7-17) 10/11/17 06:07 Creatinine 0.5 mg/dL (0.7-1.2) L 10/11/17 06:07 Estimated GFR > 60 ml/min 10/11/17 06:07 BUN/Creatinine Ratio 18 % 10/11/17 06:07 Glucose 92 mg/dL (65-100) 10/11/17 06:07 Calcium 8.9 mg/dL (8.4-10.2) 10/11/17 06:07 Phosphorus 3.70 mg/dL (2.5-4.5) 10/11/17 06:07 Magnesium 2.00 mg/dL (1.7-2.3) 10/11/17 06:07 Total Bilirubin 0.50 mg/dL (0.1-1.2) 10/11/17 06:07 Direct Bilirubin < 0.2 mg/dL (0-0.2) 10/09/17 18:54 Indirect Bilirubin 0.1 mg/dL 10/09/17 18:54 AST 48 units/L (5-40) H 10/11/17 06:07 ALT 43 units/L (7-56) 10/11/17 06:07 Alkaline Phosphatase 85 units/L (35-129) 10/11/17 06:07 NT-Pro-B Natriuret Pep 183.5 pg/mL (0-900) 10/09/17 18:54 Total Protein 6.6 g/dL (6.3-8.2) 10/11/17 06:07 Albumin 3.4 g/dL (3.9-5) L 10/11/17 06:07 Albumin/Globulin Ratio 1.1 % 10/11/17 06:07 TSH 3.730 mlU/mL (0.270-4.200) 10/09/17 18:54 Urine Color Yellow (Yellow) 10/09/17 Unknown Urine Turbidity Clear (Clear) 10/09/17 Unknown Urine pH 5.0 (5.0-7.0) 10/09/17 Unknown Ur Specific [place] 1.016 (1.003-1.030) 10/09/17 Unknown Urine Protein <15 mg/dl mg/dL (Negative) 10/09/17 Unknown Urine Glucose (UA) Neg mg/dL (Negative) 10/09/17 Unknown Urine Ketones Neg mg/dL (Negative) 10/09/17 Unknown Urine Blood Neg (Negative) 10/09/17 Unknown Urine Nitrite Neg (Negative) 10/09/17 Unknown Urine Bilirubin Neg (Negative) 10/09/17 Unknown Urine Urobilinogen 2.0 mg/dL (<2.0) 10/09/17 Unknown Ur Leukocyte Esterase Sm (Negative) 10/09/17 Unknown Urine WBC (Auto) 9.0 /HPF (0.0-6.0) H 10/09/17 Unknown Urine RBC (Auto) 7.0 /HPF (0.0-6.0) 10/09/17 Unknown U Epithel Cells (Auto) 3.0 /HPF (0-13.0) 10/09/17 Unknown Urine Bacteria (Auto) 1+ /HPF (Negative) 10/09/17 Unknown Ur Transition Epith Cell 1 /HPF 10/09/17 Unknown Hyaline Casts 1 /LPF 10/09/17 Unknown Urine Mucus Few /HPF 10/09/17 Unknown Salicylates < 0.3 mg/dL (2.8-20.0) L 10/09/17 18:54 Urine Opiates Screen Presumptive negative 10/09/17 Unknown Urine Methadone Screen Presumptive negative 10/09/17 Unknown Acetaminophen < 5.0 ug/mL (10.0-30.0) L 10/09/17 18:54 Ur Barbiturates Screen Presumptive negative 10/09/17 Unknown Ur Phencyclidine Scrn Presumptive negative 10/09/17 Unknown Ur Amphetamines Screen Presumptive negative 10/09/17 Unknown U Benzodiazepines Scrn Presumptive positive 10/09/17 Unknown Urine Cocaine Screen Presumptive negative 10/09/17 Unknown U Marijuana (THC) Screen Presumptive negative 10/09/17 Unknown Drugs of Abuse Note Disclamer 10/09/17 Unknown Plasma/Serum Alcohol 0.03 % (0-0.07) 10/10/17 00:48
[2017-10-14] MEDS: ROBAXIN PO PRN (00:29)
[2017-10-14] MEDS: NORCO 7.5/325 PO PRN (02:32)
[2017-10-14] MEDS: 1: FOLVITE 1 MG, INFUVITE 10 ML, VITAMIN B-1 100 MG in NACL 0.9% 1000 ML 988.8 ML 2: NA IV SCH (03:29)
[2017-10-14] MEDS: celeXA PO SCH (09:56)
[2017-10-14] MEDS: KEPPRA PO SCH (09:56)
[2017-10-14] MEDS: PEPCID PO SCH (09:57)
[2017-10-14 10:12] VITALS: BP 156/73
--- NOTE | 2017-10-14 11:01 | Discharge Summary ---
Providers - Providers Date of Admission: 10/10/17 10:07 Date of discharge: 10/14/17 Attending physician: RUBY LAKHANI Primary care physician: [facility]ERAPY NURSE Hospitalization Reason for admission: worsening shortness of breath/requests alcohol detoxification Condition: Stable Pertinent studies: Chest x-ray; no acute abnormality noted CTA chest; negative for PE, no acute pulmonary process diffuse interstitial septal thickening most likely represents interstitial fibrosis, mild degree subcarinal lymphadenopathy Lower extremity venous Doppler; negative for DVT Hospital course: Very pleasant 61-year-old female patient with significant past medical history of COPD chronic alcohol use Presented to the emergency room with worsening shortness of breath as well as for alcohol detoxification Initial evaluation and admitted to the hospital under medical stabilization unit Evaluated by nutrition team, and treatment was started per protocol Patient was closely monitored, medications were optimized CTA chest negative for PE, lower extremity venous Doppler negative for DVT Patient was also placed on alcohol withdrawal symptoms Patient was counseled and advised to quit alcohol and tobacco use Patient's symptoms significantly improved Today he is comfortable in bed no new complaints, Vital signs stable [id number] evaluation and physical examination done by me prior to discharge unremarkable Patient is hemodynamically and clinically stable for discharge and transfer to [facility]. Patient was stable at the time of discharge and transfer Discharge diagnosis; --Alcohol detox program; per protocol --Elevated D dimers; negative PE, negative DVT --History of COPD; oxygen titrated O2 sats more than 90% --Interstitial lung disease --Ongoing tobacco use; smoking cessation --Chronic alcohol use; advised to quit --Alcohol withdrawal symptoms; CIWA/alcohol detox Disposition: [id number]/[id number] PSY HOSP/PSY UNIT Time spent for discharge: 33 min Core Measure Documentation - Palliative Care Palliative Care/ Comfort Measures: Not Applicable - Core Measures Any of the following diagnoses?: none Exam - Constitutional Vitals: Temp Pulse Resp BP Pulse Ox 97.8 F 78 18 156/73 97 10/14/17 08:35 10/14/17 08:35 10/14/17 08:35 10/14/17 08:35 10/14/17 08:35 General appearance: Present: no acute distress, well-nourished - EENT Eyes: Present: PERRL, EOM intact - Neck Neck: Present: supple, normal ROM - Respiratory Respiratory effort: normal Respiratory: bilateral: diminished, negative: rales, rhonchi, wheezing - Cardiovascular Rhythm: regular Heart Sounds: Present: S1 & S2 - Extremities Extremities: no ischemia, No edema - Abdominal General gastrointestinal: Present: soft, non-tender, non-distended, normal bowel sounds - Integumentary Integumentary: Present: clear, warm - Musculoskeletal Musculoskeletal: strength equal bilaterally - Psychiatric Psychiatric: appropriate mood/affect, cooperative - Neurologic Neurologic: CNII-XII intact, moves all extremities Plan Activity: advance as tolerated Diet: regular Additional Instructions: D/C and transfer to [facility] today counseling. counseling, advised to quit alcohol intake Follow up with: PRIMARY CARE, [Primary Care Provider] - 3-5 Days
[2017-10-14] MEDS: HABITROL TD SCH (11:39)
[2017-10-14] MEDS: LOVENOX SUB-Q SCH (12:00)
[2017-10-16] MEDS: XOPENEX IH SCH (09:56)
[2017-10-16] MEDS: ATROVENT IH SCH ×2 (09:57→09:58)
--- NOTE | 2017-10-16 14:25 | Vascular Lab Report ---
LOWER EXTREMITY VENOUS DUPLEX: REASON FOR EXAM: Elevated d-dimer. COMMENTS ON THE RIGHT: All veins visualized are freely compressible without evidence of internal echogenicity. Flow is spontaneous and phasic throughout. COMMENTS ON THE LEFT: All veins visualized are freely compressible without evidence of internal echogenicity. Flow is spontaneous and phasic throughout. IMPRESSION: No evidence of acute or chronic deep venous thrombosis in either lower extremity.
== END 2017-10-14 12:00 | DRG 897 ==
LOC: EEVIPCON 17:00 → ED 17:00 → MSU 10-10 10:07
PROVIDERS: ADMIT Internal Medicine; ATTEND Internal Medicine
DX: F10.239 Alcohol dependence with withdrawal, unspecified (principal); E44.1 Mild protein-calorie malnutrition; Z71.6 Tobacco abuse counseling; Z71.41 Alcohol abuse counseling and surveillance of alcoholic; J44.9 Chronic obstructive pulmonary disease, unspecified; Z59.0 Homelessness; F32.9 Major depressive disorder, single episode, unspecified; Z82.49 Family history of ischemic heart disease and other diseases of the circulatory system; Z88.0 Allergy status to penicillin; Z86.69 Personal history of other diseases of the nervous system and sense organs; F10.229 Alcohol dependence with intoxication, unspecified; Y90.7 Blood alcohol level of 200-239 mg/100 ml; F17.210 Nicotine dependence, cigarettes, uncomplicated; Z90.711 Acquired absence of uterus with remaining cervical stump; Z68.24 Body mass index [BMI] 24.0-24.9, adult; J84.10 Pulmonary fibrosis, unspecified
CPT/HCPCS: 36415; 71045; 71275; 80048; 80053; 80074; 80307; 80320; 81001; 83735; 83880; 84100; 84443; 85025; 85379; 93005; 93010; 93970; 94640; G0480; J1650; J2060; J2930; J3411; J7030; Q0177; Q9967

== ENCOUNTER 2017-10-17 19:59 | Emergency (ER) | payer MEDICARE ==
[2017-10-17] MEDS ORDERED: PROVENTIL IH ONE (22:39)
[2017-10-17] MEDS ORDERED: DUONEB *Not for PRN Use IH ONE (22:39)
[2017-10-17] MEDS ORDERED: DELTASONE PO ONE (22:39)
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
--- NOTE | 2017-10-17 23:21 | XRay Report ---
FINAL REPORT PROCEDURE: Chest. TECHNIQUE: Portable AP view. HISTORY: Asthma. COMPARISON: Chest 10/09/2017. FINDINGS: The heart size is normal. There is mild tortuosity of the thoracic aorta. The lungs are clear and well expanded. There are no pleural effusions. The soft tissues and regional skeleton are unremarkable. IMPRESSION: Negative portable chest.
[2017-10-17] MEDS: ZITHROMAX PO ONE ×2 (23:28→23:40)
[2017-10-17 23:39] VITALS: BP 160/84
[2017-10-18] MEDS ORDERED: KEPPRA PO ONE (00:13)
[2017-10-18] MEDS ORDERED: XOPENEX IH ONE ×2 (00:20→00:22)
[2017-10-18] MEDS ORDERED: ATROVENT IH ONE ×2 (00:21→00:23)
[2017-10-18 00:49] LABS: Alanine Aminotransferase 46 units/L (7-56); Albumin 4.2 g/dL (3.9-5); BUN/Creatinine Ratio 11; Blood Urea Nitrogen 8 mg/dL (7-17); Calcium 9.5 mg/dL (8.4-10.2); Hemolysis Index 23
[2017-10-18 01:38] LABS: Basophils % (Auto) 0.6 % (0.0-1.8); Eosinophils # (Auto) 0.2 K/mm3 (0.0-0.4); Eosinophils % (Auto) 4.1 % (0.0-4.3); Hemoglobin 11.8 gm/dl (10.1-14.3); Lymphocytes # (Auto) 0.9 K/mm3 (1.2-5.4); Lymphocytes % (Auto) 16.3 % (13.4-35.0); Mean Corpuscular HGB Conc 34 % (30-34); Mean Corpuscular Hemoglobin 33 pg (28-32); Mean Corpuscular Volume 98 fl (79-97); Monocytes # (Auto) 0.3 K/mm3 (0.0-0.8); Monocytes % (Auto) 6.4 % (0.0-7.3); Platelet Count 154 K/mm3 (140-440); Red Blood Count 3.57 M/mm3 (3.65-5.03); Red Cell Distribution Width 18.6 % (13.2-15.2)
== END 2017-10-18 02:13 | disposition home or self-care (01) ==
LOC: ED 19:59
DX: J44.1 Chronic obstructive pulmonary disease with (acute) exacerbation (principal); F10.10 Alcohol abuse, uncomplicated; I10 Essential (primary) hypertension; Z88.0 Allergy status to penicillin
CPT/HCPCS: 36415; 71045; 80053; 84439; 84443; 84484; 85025; 93005; 93010; 94640; 99284; G0480; J7512; 80320

== ENCOUNTER 2017-11-12 03:46 | Emergency (ER) | payer MEDICARE ==
[2017-11-12] MEDS ORDERED: ASPIRIN PO ONE (04:04)
[2017-11-12 04:42] LABS: Basophils % (Auto) 0.3 % (0.0-1.8); Eosinophils # (Auto) 0.4 K/mm3 (0.0-0.4); Eosinophils % (Auto) 7.8 % (0.0-4.3); Hematocrit 29.7 % (30.3-42.9); Hemoglobin 9.9 gm/dl (10.1-14.3); Lymphocytes # (Auto) 1.8 K/mm3 (1.2-5.4); Lymphocytes % (Auto) 32.6 % (13.4-35.0); Mean Corpuscular HGB Conc 33 % (30-34); Mean Corpuscular Hemoglobin 32 pg (28-32); Mean Corpuscular Volume 97 fl (79-97); Monocytes # (Auto) 0.5 K/mm3 (0.0-0.8); Monocytes % (Auto) 9.7 % (0.0-7.3); Platelet Count 246 K/mm3 (140-440); Red Blood Count 3.06 M/mm3 (3.65-5.03)
[2017-11-12 04:48] LABS: Red Cell Distribution Width 20.1 % (13.2-15.2)
[2017-11-12 05:03] LABS: Calcium 9.4 mg/dL (8.4-10.2)
[2017-11-12] MEDS ORDERED: SOLU-Medrol IV ONE (10:21)
[2017-11-12] MEDS ORDERED: DUONEB *Not for PRN Use IH ONE (10:21)
--- NOTE | 2017-11-12 10:23 | Emergency Department Report ---
Blank Doc - Documentation Documentation: Patient is 61 years old female with history of hypertension, COPD and arthritis. Patient presented to the ER complaining of chest pain since yesterday described as substernal tightness in nature and does not radiate. Patient is also complaining of shortness of breath and cough. Patient stated that she is not feeling well. She denied any nausea or vomiting or fever recently. Given patient past medical history and current presentation patient will be served best in our main ED.
--- NOTE | 2017-11-12 10:53 | XRay Report ---
AP CHEST: HISTORY: chest pain AP view of the chest demonstrates a normal mediastinal and cardiac contour with clear lungs and normal bony and soft tissue structures. IMPRESSION: Unremarkable AP chest. No significant change since 10/17/17.
[2017-11-12 11:17] LABS: INR 0.87 (0.87-1.13)
[2017-11-12 11:18] LABS: Partial Thromboplastin Time 26.2 Sec. (24.2-36.6)
[2017-11-12 12:06] VITALS: BP 147/58
== END 2017-11-12 11:44 ==
LOC: ED 03:46
DX: R07.89 Other chest pain (principal); R06.02 Shortness of breath; R05 Cough; I10 Essential (primary) hypertension; J44.9 Chronic obstructive pulmonary disease, unspecified; M19.90 Unspecified osteoarthritis, unspecified site
CPT/HCPCS: 36415; 71045; 80048; 83880; 84484; 85025; 85379; 85610; 85730; 93005; 93010; 94640; 99284

== ENCOUNTER 2017-11-12 15:15 | Emergency (ER) | payer MEDICARE ==
--- NOTE | 2017-11-12 20:21 | Emergency Department Report ---
ED General Adult HPI - General Chief complaint: Chest Pain Stated complaint: CANT BREATH/CHEST Time Seen by Provider: 11/12/17 20:17 Source: patient, RN notes reviewed, old records reviewed Mode of arrival: Ambulatory Limitations: No Limitations - History of Present Illness Initial comments: This is a 61-year-old female who is unknown to this provider previously. Has a past history of partial obstructive lung disease, reports noncompliance with home oxygen, cannot recall the name of her private row boss hoeing, indicates that he/they are at [facility]. Patient was admitted to the hospital approximately one month ago for a COPD exacerbation, had a CT angiogram of the chest which was negative for pneumonia, pulmonary embolus. Presents to the ER today with a complaint of chronic back pain and the shortness of breath. It is intermittent, worsens with physical exertion and decreases with rest. She denies chest pain to me. She denies leg pain, leg swelling. She indicates cough, and dry mucous production. She also indicates that she is trying to detox from alcohol. She is not homicidal or suicidal. Patient complains of chronic neck and back pain which has been present for 5 years, and indicates that she is seeing pain management for this. She denies extremity weakness, numbness, unsteady gait. -: Gradual Location: back Quality: aching Consistency: intermittent Improves with: rest Worsens with: movement Associated Symptoms: cough, loss of appetite, malaise, shortness of breath. denies: confusion, chest pain, diaphoresis, fever/chills, headaches, nausea/ vomiting, rash, seizure, syncope, weakness - Related Data Home Medications Medication Instructions Recorded Confirmed Last Taken ALBUTEROL Inhaler 2 inhalation INHALATION Q48HR PRN 10/10/17 11/12/17 Unknown Amlodipine Besylate [Norvasc] 10 mg PO DAILY 10/10/17 11/12/17 Unknown Citalopram Hydrobromide [celeXA] 40 mg PO DAILY 10/10/17 11/12/17 Unknown HYDROcodone/ACETAMINOPHEN 7.5 mg PO Q6HR PRN 10/10/17 11/12/17 Unknown Ipratropium (Nf) [Atrovent] 2 puff IH Q6HR PRN 10/10/17 11/12/17 Unknown Mirtazapine [Remeron] 15 mg PO QHS 10/10/17 11/12/17 Unknown levETIRAcetam [Keppra] 500 mg PO BID 10/10/17 11/12/17 Unknown Previous Rx's Medication Instructions Recorded Last Taken Type Prednisone 50 mg PO DAILY #4 tablet 10/18/17 Unknown Rx Albuterol Sulfate [Proair 90 mcg IH Q4HR PRN #2 aer.pow.ba 11/12/17 Unknown Rx Respiclick] Aspirin [Aspirin BABY CHEW TAB] 81 mg PO QDAY #30 tab.chew 11/12/17 Unknown Rx Ipratropium [place] [Atrovent Hfa] 12.9 gm IH Q4HR #2 hfa.aer.ad 11/12/17 Unknown Rx predniSONE [Deltasone] 40 mg PO QDAY #8 tab 11/12/17 Unknown Rx Allergies Allergy/AdvReac Type Severity Reaction Status Date / Time Penicillins Allergy Unknown Unknown Verified 10/17/17 20:18 mycins Allergy Unknown Uncoded 11/12/17 04:06 ED Review of Systems ROS: Stated complaint: CANT BREATH/CHEST Other details as noted in HPI Constitutional: fever. denies: malaise Eyes: denies: eye discharge Respiratory: cough, shortness of breath, wheezing Cardiovascular: denies: chest pain Gastrointestinal: denies: vomiting Genitourinary: denies: dysuria Musculoskeletal: arthralgia Skin: denies: lesions Neurological: weakness Psychiatric: anxiety. denies: suicidal thoughts ED Past Medical Hx - Past Medical History Previous Medical History?: Yes Hx Hypertension: Yes Hx Seizures: Yes Hx COPD: Yes - Surgical History Past Surgical History?: Yes Additional Surgical History: Partial Hysterectomy - Social History Smoking Status: Current Every Day Smoker Substance Use Type: Alcohol, Prescribed - Medications Home Medications: Home Medications Medication Instructions Recorded Confirmed Last Taken Type ALBUTEROL Inhaler 2 inhalation INHALATION Q48HR PRN 10/10/17 11/12/17 Unknown History Amlodipine Besylate [Norvasc] 10 mg PO DAILY 10/10/17 11/12/17 Unknown History Citalopram Hydrobromide [celeXA] 40 mg PO DAILY 10/10/17 11/12/17 Unknown History HYDROcodone/ACETAMINOPHEN 7.5 mg PO Q6HR PRN 10/10/17 11/12/17 Unknown History Ipratropium (Nf) [Atrovent] 2 puff IH Q6HR PRN 10/10/17 11/12/17 Unknown History Mirtazapine [Remeron] 15 mg PO QHS 10/10/17 11/12/17 Unknown History levETIRAcetam [Keppra] 500 mg PO BID 10/10/17 11/12/17 Unknown History Prednisone 50 mg PO DAILY #4 tablet 10/18/17 11/12/17 Unknown Rx Albuterol Sulfate [Proair 90 mcg IH Q4HR PRN #2 aer.pow.ba 11/12/17 Unknown Rx Respiclick] Aspirin [Aspirin BABY CHEW TAB] 81 mg PO QDAY #30 tab.chew 11/12/17 Unknown Rx Ipratropium [place] [Atrovent Hfa] 12.9 gm IH Q4HR #2 hfa.aer.ad 11/12/17 Unknown Rx predniSONE [Deltasone] 40 mg PO QDAY #8 tab 11/12/17 Unknown Rx ED Physical Exam - General Limitations: No Limitations General appearance: alert, in no apparent distress - Head Head exam: Present: atraumatic, normocephalic - Eye Eye exam: Present: normal appearance, EOMI. Absent: nystagmus - ENT ENT exam: Present: normal orophraynx, other (patient has poor dentition) - Neck Neck exam: Present: normal inspection, full ROM. Absent: tenderness, meningismus - Respiratory Respiratory exam: Present: rhonchi. Absent: respiratory distress - Cardiovascular Cardiovascular Exam: Present: regular rate, normal rhythm, normal heart sounds. Absent: bradycardia, tachycardia, irregular rhythm, systolic murmur, diastolic murmur, rubs, gallop - GI/Abdominal GI/Abdominal exam: Present: soft, normal bowel sounds. Absent: distended, tenderness, guarding, rebound, rigid, pulsatile mass - Extremities Exam Extremities exam: Present: normal inspection, full ROM. Absent: pedal edema, joint swelling - Back Exam Back exam: Present: normal inspection, full ROM, paraspinal tenderness. Absent : vertebral tenderness - Neurological Exam Neurological exam: Present: alert, oriented X3, CN II-XII intact, normal gait, other (Extraocular movements intact. Tongue midline. No facial droop. Facial sensation intact to light touch in the V1, V2, V3 distribution bilaterally. 5 and 5 strength in 4 extremities.. Sensation is intact to light touch in 4 extremities.). Absent: motor sensory deficit - Psychiatric Psychiatric exam: Present: normal affect, normal mood - Skin Skin exam: Present: warm, dry, intact, normal color. Absent: rash ED Course Vital Signs 11/12/17 11/12/17 11/12/17 15:40 21:36 23:07 Temperature 98.8 F Pulse Rate 93 H 74 Pulse Rate [ 80 Right Bases] Respiratory 18 16 Rate Respiratory 18 Rate [Right Bases] Blood Pressure 126/69 Blood Pressure 129/64 [Left] O2 Sat by Pulse 99 93 Oximetry - Reevaluation(s) Reevaluation #1: 11/12/17 20:48 Differential diagnosis, including but not limited to: COPD, pneumonia, asthma, reactive airway disease, pulmonary embolus, acute coronary syndrome, Assessment and plan: 61-year-old female who makes no complaint of chest pain to this provider even though I asked her multiple times if she was having any pain other than her back pain and neck pain. She's had 3 negative troponins within the past 24 hours, her EKG is unremarkable and unchanged 2, patient low risk by LONG score, low risk by heart score. Had a negative CT angiogram of the chest within the past month. A d-dimer was sent prior to my evaluation, based on my personal assessment I find the patient to be low risk by well's criteria, and this d-dimer is most likely a false positive. However, given her recent hospitalization, we will obtain a CT scan of the chest to exclude pulmonary embolus. I explained to the patient that she would need to follow-up with her outpatient row boss hoeing. She is clinically sober at this time, with a GCS of 15, with an NIH score of 0. She does not meet 1013 criteria at this time. Most likely, the patient is experiencing the natural progression and natural history of her underlying lung disease. Reevaluation #2: 11/12/17 20:[address] a case management consult assist the patient with outpatient management. Reevaluation #3: 11/12/17 20:51 Laboratory studies from earlier on today indicate troponin negative 3, EKG unchanged 2 and from prior. X-ray of the chest is unremarkable. Reevaluation #4: 11/12/17 23:48 Rhonchorous breath sounds have improved. The patient is sleeping comfortably on her stretcher. Her CT scan shows no pneumonia, pneumothorax or pulmonary embolus. Patient is sleeping and is in no acute distress at this time. Objectively speaking she is medically suitable for discharge at this time. ED Medical Decision Making - Lab Data Vital Signs - 24 hr 11/12/17 15:40 Temperature 98.8 F Pulse Rate 93 H Respiratory 18 Rate Blood Pressure 126/69 O2 Sat by Pulse 99 Oximetry - EKG Data -: EKG Interpreted by Me EKG shows normal: sinus rhythm, axis, intervals, QRS complexes, ST-T waves - EKG Data When compared to previous EKG there are: no significant change Interpretation: no acute changes, normal EKG - Radiology Data Radiology results: report reviewed, image reviewed interpreted by me: X-ray of the chest performed earlier on today is negative for acute disease Print Report Referring Physician: TOBIN SHAH Patient Name: RYLAN VILLALOBOS Date of : 1955 Sex: Female Report Date: 2017-10-09 Report Status: [place] [address] Cat Scan Report Signed Patient: RYLAN VILLALOBOS MR#: [id number] : 1955 Acct:[id number] Age/Sex: 61 / F ADM Date: 10/09/17 Loc: ED Attending Dr: Ordering Physician: TOBIN SHAH MD Date of Service: 10/09/17 Procedure(s): CT angio chest Accession Number(s): [id number] cc: TOBIN HSAH MD FINAL REPORT PROCEDURE: CT ANGIO CHEST TECHNIQUE: Computerized tomographic angiography of the chest was performed after the IV injection of iodinated nonionic contrast including image processing. The image data was postprocessed using 2-dimensional multiplanar reformatted (MPR) and 3-dimensional (MIP and/or volume rendered) techniques. HISTORY: Elevated D-Dimer COMPARISON: No prior studies are available for comparison. FINDINGS: Bilateral pulmonary arteries and their branches demonstrate normal opacification without filling defects. Aorta is of normal caliber without evidence of dissection or aneurysm formation. Cardiac size is within normal limits. There is mild degree sub-carinal lymphadenopathy. Nonenlarged right hilar lymph nodes are identified. Thyroid demonstrates normal size and density. Visualized upper abdominal structures are within normal limits. There is diffuse thickening of interstitial septa. There are no confluent infiltrates or mass lesions. IMPRESSION: No evidence of pulmonary embolism No acute pulmonary process Diffuse interstitial septal thickening most likely represents interstitial fibrosis. Mild degree sub-carinal lymphadenopathy. Transcribed By: [facility] [place]ictated By: VADIM WEN Electronically Authenticated By: VADIM WEN Signed Date/Time: 10/09/17 3733 Critical care attestation.: If time is entered above; I have spent that time in minutes in the direct care of this critically ill patient, excluding procedure time. ED Disposition Clinical Impression: Dyspnea Qualifiers: Dyspnea type: unspecified Qualified Code(s): R06.00 - Dyspnea, unspecified Disposition: - TO HOME OR SELFCARE Is pt being admited?: No Does the pt Need Aspirin: No Condition: Good Instructions: Chronic Obstructive Pulmonary Disease (ED) Additional Instructions: Continue outpatient medications as directed. follow up with her primary care doctor or business applications analyst within the next 3-5 days. Follow-up with a branch service specialist within the next 2-3 weeks. Make certain to abstain or limit alcohol consumption. Return to the ER right away with new pain, worsened pain, migration of pain, fevers, chills, lethargy, irritability, projectile vomiting, change in mental status, confusion, inability to tolerate liquid feeds. Prescriptions: Albuterol Sulfate [Proair Respiclick] 90 mcg IH Q4HR PRN #2 aer.pow.ba PRN Reason: Wheezing Aspirin [Aspirin BABY CHEW TAB] 81 mg PO QDAY #30 tab.chew Ipratropium [place] [Atrovent Hfa] 12.9 gm IH Q4HR #2 hfa.aer.ad predniSONE [Deltasone] 40 mg PO QDAY #8 tab Referrals: PRIMARY CAREMD [Primary Care Provider] - 3-5 Days EMILIANO DUBOSE MD [Staff Physician] - 3-5 Days [facility] [Provider Group] - 3-5 Days [facility] [Provider Group] - 3-[address] [facility] [Provider Group] - 3-5 Days
[2017-11-12] MEDS ORDERED: PROVENTIL IH ONE (20:30)
[2017-11-12] MEDS ORDERED: NACL 0.9% 1000 ML 1,000 ML IV ONE (20:30)
[2017-11-12] MEDS ORDERED: ATROVENT IH ONE (20:30)
[2017-11-12 23:12] VITALS: BP 129/64
--- NOTE | 2017-11-12 23:40 | Cat Scan Report ---
FINAL REPORT EXAM: CT ANGIO CHEST HISTORY: dyspnea + d dimer TECHNIQUE: CT chest CT angiogram with reconstructions PRIORS: None. FINDINGS: There is no evidence of filling defect within the central pulmonary vasculature to suggest the presence of acute pulmonary embolus. No evidence of mediastinal pathologic lymph node enlargement Heart and great vessels are unremarkable. The aorta is normal in caliber. Subpleural cystic changes are noted both lungs most prominent in the upper lobes. No confluent pulmonary infiltrates identified. Visualized portion of the upper abdomen demonstrates no acute change. IMPRESSION: Paraseptal pulmonary emphysematous changes No CT evidence for acute pulmonary embolus
== END 2017-11-13 00:02 | disposition home or self-care (01) ==
LOC: ED 15:15
DX: R06.00 Dyspnea, unspecified (principal); I10 Essential (primary) hypertension; J44.9 Chronic obstructive pulmonary disease, unspecified; F17.200 Nicotine dependence, unspecified, uncomplicated; Z90.711 Acquired absence of uterus with remaining cervical stump; Z79.82 Long term (current) use of aspirin; Z88.0 Allergy status to penicillin; Z91.013 Allergy to seafood
CPT/HCPCS: 71275; 93005; 93010; 94640; 96374; 99284; J2930; J7030; Q9967

== ENCOUNTER 2017-11-13 18:21 | Emergency (ER) | payer MEDICARE ==
[2017-11-13 18:36] VITALS: BP 149/87
[2017-11-13 19:29] LABS: Bilirubin,Urine NEG (Negative); Blood,Urine NEG (Negative); Color,Urine Yellow (Yellow); Mucus,Urine FEW /HPF; Protein,Urine <15 mg/dL mg/dL (Negative); Urobilinogen,Urine < 2.0 mg/dL (<2.0)
[2017-11-13 19:50] LABS: Amphetamine Screen,Urine PRESUMPTIVE NEGATIVE; Cannabinoid Screen,Urine PRESUMPTIVE NEGATIVE; Cocaine Screen,Urine PRESUMPTIVE NEGATIVE; Methadone Screen,Urine PRESUMPTIVE NEGATIVE; Opiate Screen,Urine PRESUMPTIVE NEGATIVE
[2017-11-13 20:05] LABS: Benzodiazepines Screen,Urine PRESUMPTIVE POSITIVE
== END 2017-11-13 20:00 | disposition left against medical advice (07) ==
LOC: ED 18:21
DX: Z02.89 Encounter for other administrative examinations (principal); Z53.21 Procedure and treatment not carried out due to patient leaving prior to being seen by health care provider
CPT/HCPCS: 80307; 81001

== ENCOUNTER 2017-11-17 17:02 | Emergency (ER) | payer MEDICARE ==
[2017-11-17 17:45] VITALS: BP 112/77
--- NOTE | 2017-11-17 21:14 | Emergency Department Report ---
ED Medical Clearance HPI - General Chief complaint: Medical Clearance Stated complaint: MEDICATION REFILL Time Seen by Provider: 11/17/17 21:08 Source: patient Mode of arrival: Ambulatory - History of Present Illness Initial comments: 61-year-old female comes in wanting to be admitted since she does not have any medications. Patient reports that she has her prescriptions but does not the money to fill them. Patient reports that she has been off of her Keppra for the last 3 days and does not have her respiratory medications. Patient reports that she went to [facility] to check in for alcohol abuse but they're not able to keep her until Saturday. So patient comes to the emergency room wanting us to admit her until she is able to be seen at [facility]. Patient does admit that she has her prescriptions and does not need them to be rewritten. Patient denies any homicidal or suicidal ideations. She did elicit that she was at [facility] 2 weeks ago and was intubated but does not know why. Patient reported to triage that she could not breathe so she needs to be admitted until tomorrow. Home medications: Home Medications Medication Instructions Recorded Confirmed Last Taken ALBUTEROL Inhaler 2 inhalation INHALATION Q48HR PRN 10/10/17 11/12/17 Unknown Amlodipine Besylate [Norvasc] 10 mg PO DAILY 10/10/17 11/12/17 Unknown Citalopram Hydrobromide [celeXA] 40 mg PO DAILY 10/10/17 11/12/17 Unknown HYDROcodone/ACETAMINOPHEN 7.5 mg PO Q6HR PRN 10/10/17 11/12/17 Unknown Ipratropium (Nf) [Atrovent] 2 puff IH Q6HR PRN 10/10/17 11/12/17 Unknown Mirtazapine [Remeron] 15 mg PO QHS 10/10/17 11/12/17 Unknown levETIRAcetam [Keppra] 500 mg PO BID 10/10/17 11/12/17 Unknown Previous Rx's Medication Instructions Recorded Last Taken Type Prednisone 50 mg PO DAILY #4 tablet 10/18/17 Unknown Rx Albuterol Sulfate [Proair 90 mcg IH Q4HR PRN #2 aer.pow.ba 11/12/17 Unknown Rx Respiclick] Aspirin [Aspirin BABY CHEW TAB] 81 mg PO QDAY #30 tab.chew 11/12/17 Unknown Rx Ipratropium Queen [Atrovent Hfa] 12.9 gm IH Q4HR #2 hfa.aer.ad 11/12/17 Unknown Rx predniSONE [Deltasone] 40 mg PO QDAY #8 tab 11/12/17 Unknown Rx Allergies/Adverse reactions: Allergies Allergy/AdvReac Type Severity Reaction Status Date / Time Penicillins Allergy Unknown Unknown Verified 10/17/17 20:18 mycins Allergy Unknown Uncoded 11/12/17 04:06 ED Review of Systems ROS: Stated complaint: MEDICATION REFILL Other details as noted in HPI Constitutional: denies: chills, fever Eyes: denies: eye pain, eye discharge, vision change ENT: denies: ear pain, throat pain Respiratory: shortness of breath Cardiovascular: denies: chest pain, palpitations Endocrine: no symptoms reported Gastrointestinal: denies: abdominal pain, nausea, diarrhea Genitourinary: denies: urgency, dysuria, discharge Musculoskeletal: denies: back pain, joint swelling, arthralgia Skin: denies: rash, lesions Neurological: denies: headache, weakness, paresthesias Psychiatric: denies: anxiety, depression ED Past Medical Hx - Past Medical History Previous Medical History?: Yes Hx Hypertension: Yes Hx Seizures: Yes Hx COPD: Yes - Surgical History Past Surgical History?: Yes Additional Surgical History: Partial Hysterectomy - Social History Smoking Status: Current Every Day Smoker Substance Use Type: Alcohol - Medications Home Medications: Home Medications Medication Instructions Recorded Confirmed Last Taken Type ALBUTEROL Inhaler 2 inhalation INHALATION Q48HR PRN 10/10/17 11/12/17 Unknown History Amlodipine Besylate [Norvasc] 10 mg PO DAILY 10/10/17 11/12/17 Unknown History Citalopram Hydrobromide [celeXA] 40 mg PO DAILY 10/10/17 11/12/17 Unknown History HYDROcodone/ACETAMINOPHEN 7.5 mg PO Q6HR PRN 10/10/17 11/12/17 Unknown History Ipratropium (Nf) [Atrovent] 2 puff IH Q6HR PRN 10/10/17 11/12/17 Unknown History Mirtazapine [Remeron] 15 mg PO QHS 10/10/17 11/12/17 Unknown History levETIRAcetam [Keppra] 500 mg PO BID 10/10/17 11/12/17 Unknown History Prednisone 50 mg PO DAILY #4 tablet 10/18/17 11/12/17 Unknown Rx Albuterol Sulfate [Proair 90 mcg IH Q4HR PRN #2 aer.pow.ba 11/12/17 Unknown Rx Respiclick] Aspirin [Aspirin BABY CHEW TAB] 81 mg PO QDAY #30 tab.chew 11/12/17 Unknown Rx Ipratropium Queen [Atrovent Hfa] 12.9 gm IH Q4HR #2 hfa.aer.ad 11/12/17 Unknown Rx predniSONE [Deltasone] 40 mg PO QDAY #8 tab 11/12/17 Unknown Rx ED Physical Exam - General Limitations: No Limitations General appearance: alert, in no apparent distress - Head Head exam: Present: atraumatic, normocephalic - Eye Eye exam: Present: EOMI - ENT ENT exam: Present: mucous membranes moist - Respiratory Respiratory exam: Present: normal lung sounds bilaterally. Absent: respiratory distress, wheezes, rales, rhonchi, stridor - Cardiovascular Cardiovascular Exam: Present: regular rate, normal rhythm. Absent: systolic murmur, diastolic murmur, rubs, gallop - GI/Abdominal GI/Abdominal exam: Present: soft, normal bowel sounds. Absent: distended, tenderness - Extremities Exam Extremities exam: Present: normal inspection, full ROM - Neurological Exam Neurological exam: Present: alert, oriented X3, normal gait - Psychiatric Psychiatric exam: Present: anxious. Absent: homicidal ideation, suicidal ideation - Skin Skin exam: Present: warm, dry, intact, normal color. Absent: rash ED Course Vital Signs 11/17/17 17:29 Temperature 98.5 F Pulse Rate 104 H Respiratory 16 Rate Blood Pressure 112/77 O2 Sat by Pulse 97 Oximetry ED Medical Decision Making - Medical Decision Making Patient's been evaluated by this provider fast track. I will give patient Keppra 500 mg by mouth now for her seizure disorder. Discussed the patient she needs filled her prescriptions for her chronic medication. Discussed the patient she needs to follow-up with Janelle for her therapy for alcohol abuse. Patient verbalizes understanding ED Disposition Clinical Impression: Medication refill, Homeless Disposition: [id number] TO HOME OR SELFCARE Is pt being admited?: No Does the pt Need Aspirin: No Condition: Stable Additional Instructions: Please fill your prescriptions that she would have. Please follow-up with Janelle Powers your primary care provider. Referrals: PRIMARY CARE, [Primary Care Provider] - 3-5 Days
[2017-11-17] MEDS ORDERED: KEPPRA PO ONE (21:39)
== END 2017-11-17 21:45 | disposition home or self-care (01) ==
LOC: ED 17:02
DX: J44.9 Chronic obstructive pulmonary disease, unspecified (principal); Z76.0 Encounter for issue of repeat prescription; Z59.0 Homelessness; F17.200 Nicotine dependence, unspecified, uncomplicated; I10 Essential (primary) hypertension; Z90.711 Acquired absence of uterus with remaining cervical stump; Z88.0 Allergy status to penicillin
CPT/HCPCS: 99282